=== PATIENT | female | born 1995 | race Caucasian/White ===

== ENCOUNTER → 2020-05-16 | Outpatient (CLI) | payer SELFPAY ==
--- NOTE | 2020-05-16 09:37 | REP ---
OBSTETRIC SONOGRAPHY: HISTORY: Supervision of for anatomy. FINDINGS: Scanning through the gravid uterus demonstrates a single living intrauterine gestation in a breech lie. motion is observed and heart rate is recorder 127 beats per minute. Amniotic fluid is subjectively normal. Closed cervical length is 3.5 cm, measured transabdominally . No extrauterine abnormality is observed. No anomaly is seen. The following anatomic structures are identified and felt to be sonographically unremarkable: cranium, choroid plexus, cavum, cerebellum and posterior fossa, nuchal fold, face and profile, four-chamber heart with left and right ventricular outflow tract views, diaphragm, left-sided stomach, abdominal wall cord insertion, three-vessel cord, kidneys and bladder, spine, upper and lower extremities. Biometry Chart: BPD 6.1 cm = 25 weeks 0 days HC 22.1 cm = 24 weeks 1 day AC 19.5 cm = 24 weeks 1 day FL 4.4 cm = 24 weeks 2 days HL 4.2 cm = 25 weeks 1 day HC/AC ratio normal 1.14 Cephalic index normal 0.78. Estimated weight 675 grams, 1 pound 7 ounces, 39th percentile for 24 weeks 3 days. IMPRESSION: Single living intrauterine gestation at 24 weeks 0 days by today's composite sonographic criteria. FUNMILAYO by today's criteria September 05, 2020. anatomic survey is felt to be complete.
== END ==
LOC: M WHC 07:50
PROVIDERS: ATTEND Advanced Practice Midwife
DX: Z34.02 Encounter for supervision of normal first pregnancy, second trimester (principal); Z3A.24 24 weeks gestation of pregnancy

== ENCOUNTER → 2020-06-21 | Outpatient (CLI) | payer SELFPAY ==
[2020-06-21 12:39] LABS: HEMATOCRIT 38.3 % (36.0-47.0); HEMOGLOBIN 12.7 g/dl (12.0-15.5); MEAN CORPUSCULAR HEMOGLOBIN 32.2 pg (27.0-33.0); MEAN CORPUSCULAR HGB CONC 33.2 g/dl (32.0-36.5); MEAN CORPUSCULAR VOLUME 97.2 fl (80.0-96.0); PLATELET COUNT, AUTOMATED 225 10^3/uL (150-450); RED BLOOD COUNT 3.94 10^6/uL (4.00-5.40); WHITE BLOOD COUNT 14.1 10^3/uL (4.0-10.0)
== END ==
LOC: M PLALAB 08:01
PROVIDERS: ATTEND Advanced Practice Midwife
DX: Z34.02 Encounter for supervision of normal first pregnancy, second trimester (principal); Z36.89 Encounter for other specified antenatal screening

== ENCOUNTER → 2020-07-28 | Outpatient (REF) | payer OTHER | LOC: M LAB REF 08:19 | PROVIDERS: ATTEND Nurse Practitioner Family | DX: R30.0 Dysuria (principal) ==

== ENCOUNTER → 2020-08-03 | Outpatient (REF) | payer OTHER ==
[~2020-08-03] MED LIST: ACET-683 PO; IBUP80TA PO; PRENTAB9 PO; TUMS500C PO
== END ==
LOC: M SFHCWAGY 16:56
PROVIDERS: ATTEND Advanced Practice Midwife
DX: Z34.03 Encounter for supervision of normal first pregnancy, third trimester (principal)
CPT/HCPCS: 87081; G0463

== ENCOUNTER 2020-09-09 11:58 | Outpatient (CLI) | payer OTHER ==
[~2020-09-09] VITALS: Ht 160 cm; Wt 89.9 kg
[2020-09-09 12:17] VITALS: BP 118/73
[2020-09-09] MEDS ORDERED: PRENTAB9 PO (12:26)
[2020-09-09] MEDS ORDERED: TUMS500C PO (12:26)
--- NOTE | 2020-09-09 14:09 | IPNPDOC ---
Text Note Date of Service The patient was seen on 09/09/20. NOTE 41wk APFT Leona is a 25yo with SIUP at 41w0d presenting for scheduled APFT since she is 41wk and declining IOL. Feels well, no complaints. Good FM. No VB/LOF/regular ctx. Swept membranes yesterday and she had some cramping after, but that stopped. Vitals wnl Gen: WDWN, resting comfortably in bed Abdomen: soft, gravid, NTTP Extremities: no edema of BLE Cat II FHRT initially for minimal variability, but after patient had juice and some lunch, there was mod gustavo and many large accels, NO decels No ctx pattern TAUS: SIUP with cephalic presentation, posterior placenta, MARIE 20cm, +FCA, +FM Assessment: Leona is a 25yo with SIUP at 41w0d with reassuring testing, Cat I FHRT and MARIE 20cm. No signs of labor yet. Still declines IOL. Plan: -Discharge to home -Patient scheduled for NST/MARIE on 09/11 -Offered another membrane sweep, pt declined -Discussed return precautions Franca Kessler MD VS,Neto, I+O VS, Neto I+O Vital Signs Date Time Temp Pulse Resp B/P (MAP) Pulse Ox O2 Delivery O2 Flow Rate FiO2 09/09/20 12:17 97.8 68 16 118/73 (88) Franca Kessler MD Sep 09, 2020 14:09
== END 2020-09-09 13:59 | disposition home or self-care (01) ==
LOC: M LDO 11:58
PROVIDERS: ATTEND Obstetrics & Gynecology
DX: O48.0 Post-term pregnancy (principal); Z3A.41 41 weeks gestation of pregnancy
CPT/HCPCS: 59025; 76815; G0378; G0463

== ENCOUNTER 2020-09-13 09:26 | Inpatient (IN) | payer OTHER ==
[2020-09-13] VITALS (26 sets, daily range): BP systolic 110–228; BP diastolic 64–112
[~2020-09-13] VITALS: Ht 160 cm; Wt 90.7 kg
[~2020-09-13 09:26] MED LIST changes: -ACET-683 PO; -IBUP80TA PO
[2020-09-13] MEDS ORDERED: miSOPROStol 50 MCG 1/2 TAB (S0191) PO ONE (10:00)
[2020-09-13 11:09] LABS: HEMATOCRIT 40.1 % (36.0-47.0); HEMOGLOBIN 13.1 g/dl (12.0-15.5); MEAN CORPUSCULAR HEMOGLOBIN 30.5 pg (27.0-33.0); MEAN CORPUSCULAR HGB CONC 32.7 g/dl (32.0-36.5); MEAN CORPUSCULAR VOLUME 93.3 fl (80.0-96.0); PLATELET COUNT, AUTOMATED 194 10^3/uL (150-450); WHITE BLOOD COUNT 11.2 10^3/uL (4.0-10.0)
[2020-09-13] MEDS ORDERED: OXYTOCIN DRIP 30 UNITS in IV 1 EA IV SCH (14:15)
[2020-09-13] MEDS: LR 1,000 ML IV SCH ×2 (15:31→20:52)
[2020-09-14] VITALS (41 sets, daily range): BP systolic 108–161; BP diastolic 63–99
[2020-09-14] MEDS ORDERED: PROMETHAZINE INJ 25 MG/ML VIAL (J2550) IV ONE (01:00)
[2020-09-14] MEDS ORDERED: BUTORPHANOL 2 MG/ML INJ (J0595) IV ONE (01:00)
[2020-09-14] MEDS ORDERED: FENTANYL 2MCG/ML ROPIVACAINE 0.2% IN 0.9% NACL 100ML IVBAG As Ordered ONE (04:43)
[2020-09-14] MEDS: LR 1,000 ML IV SCH ×2 (05:02→07:46)
[2020-09-14] MEDS ORDERED: EPIDURAL COMMENT XX SCH (06:00)
[2020-09-14] MEDS ORDERED: REFRIGERATOR IV KEYS XX PRN (06:00)
[2020-09-14] MEDS ORDERED: ONDANSETRON 4MG/2ML VIAL IV PRN (06:00)
[2020-09-14] MEDS ORDERED: LACTATED RINGER'S 1000 ML IV PRN (06:00)
[2020-09-14] MEDS ORDERED: FENTANYL/ROPIVACAINE/NACL BAG 100 ML EPIDURAL SCH (06:00)
[2020-09-14] MEDS ORDERED: ePHEDrine SULFATE 25 MG/5 ML(5MG/ML) SYRINGE IV PRN (06:00)
[2020-09-14] MEDS ORDERED: EPIDURAL/PCA KEYS XX PRN (06:00)
[2020-09-14] MEDS ORDERED: NALOXONE INJ 0.4MG/1ML VIAL (J2310 PER 1MG) IV PRN (06:00)
[2020-09-14] MEDS ORDERED: diphenhydrAMINE 50MG/ML VIAL (J1200) IV PRN (06:00)
--- NOTE | 2020-09-14 11:37 | DNPDOC ---
[facility] Delivery Note Delivery Note DATE OF DELIVERY: 09/14/2020 PREDELIVERY DIAGNOSIS: 41w5d IOL for LTG POST DELIVERY DIAGNOSIS: Delivered. PROCEDURE: Spontaneous vaginal delivery AUDIO VISUAL AIDS DIRECTOR: Dr. Franca Kessler MD ANESTHESIA: epidural ESTIMATED BLOOD LOSS: 300 mL. FINDINGS: 9 pound 0 oz (4090g) female infant, Score 7/9, one nuchal cord DELIVERY SUMMARY: Leona is a 25yo [id number] s/p uncomplicated after undergoing IOL at 41w5d, delivering at 1028 on 09/14/20. She received a dose of cytotec and then was started on IV pitocin. At 6cm, she had SROM, and she then received an epidural. She progressed to C/C/0 at which point she began pushing. With good maternal effort, head delivered OA, restituted LILIANA. Tight nuchal cord reduced. Right anterior shoulder delivered followed by posterior shoulder and corpus. was placed on maternal abdomen, apgars 7/9, spontaneous cry noted. After approximately 2 minutes, cord clamped x2 and cut by FOB. With uterine massage and traction on the cord, placenta delivered spontaneously and intact with 3 vessel centrally inserted cord. IV pitocin given per protocol. More uterine massage performed with cessation of bleeding, EBL 300ml. Inspection of perineum and vagina revealed a small superficial periclitoral darshan repaired using a figure of 8 with 4-0 vicryl suture as well as a left labial laceration repaired with 3-0 vicryl in routine fashion, both having excellent reapproximation and total hemostasis. All counts correct x2. Mom and were doing well when I left the room. MD Checo Morrow Katrina D MD Sep 14, 2020 11:36
[2020-09-14] MEDS ORDERED: OXYTOCIN DRIP 30 UNITS in IV 1 EA IV SCH (12:22)
[2020-09-14] MEDS ORDERED: ACETAMINOPHEN 500 MG TAB PO PRN (12:30)
[2020-09-14] MEDS ORDERED: MEASLES,MUMPS,RUBELLA VACCINE INJ (MMR-II) (90707) SC SCH (12:30)
[2020-09-14] MEDS ORDERED: RHOGAM 300 MCG (1500 IU) INJ (J2790) IM SCH (12:30)
[2020-09-14] MEDS ORDERED: ACETAMINOPHEN TAB 650MG DOSE (2X325MG) PO PRN (12:30)
[2020-09-14] MEDS ORDERED: DIBUCAINE 1% OINTMENT 30GM TOP PRN (12:30)
[2020-09-14] MEDS: IBUPROFEN 800 MG TAB PO PRN (17:43)
[2020-09-14] MEDS: DOCUSATE SODIUM 100 MG CAP PO SCH (20:15)
[2020-09-15 06:00] VITALS: BP 97/55
--- NOTE | 2020-09-15 06:59 | IPNPDOC ---
Progress Note Date of Service: Sep 15, 2020 Day#: 1 Progress Note PPD 1 SUBJECT: Leona is a 25yo [id number] s/p uncomplicated after undergoing IOL at 41w5d, delivering at 1028 on 09/14/20, doing well on PPD 1. She has been ambulating, voiding spontaneously without issue and tolerating regular diet. Breast feeding without issue. Reports lochia is like a normal period. No f/c/n/v/CP/SOB. OBJECTIVE: VITAL SIGNS: Within normal limits, afebrile. Alert and oriented times three. Abdomen: Fundus firm at U-2. Soft, NTTP. Extremities: no pain with palpation of calves ASSESSMENT: Leona is a 25yo [id number] s/p uncomplicated after undergoing IOL at 41w5d, delivering at 1028 on 09/14/20, doing well on PPD 1. Vitals within normal limits, afebrile, hemodynamically stable with no evidence of infection. PLAN: 1. Routine care 2. Tylenol and Motrin for pain. 3. Encourage breast feeding and ambulation. 4. undecided on PP contraception 5. Regular diet 6. Anticipate discharge home tomorrow if meeting all milestones Franca Kessler MD VS, I&O, 24H, Fishbone Vital Signs/I&O Vital Signs Date Time Temp Pulse Resp B/P (MAP) Pulse Ox O2 Delivery O2 Flow Rate FiO2 09/15/20 06:00 96.9 81 18 97/55 (69) 09/14/20 01:20 Room Air 09/13/20 12:11 99 I&O- Last 24 Hours up to 6 AM 09/15/20 06:00 Intake Total 2083.5 ml Output Total 2325 ml Balance -241.5 ml Franca Kessler MD Sep 15, 2020 06:59
[2020-09-15] MEDS: PRENATAL VITAMINS CHEWABLE TABLET PO SCH (08:18)
[2020-09-15] MEDS: DOCUSATE SODIUM 100 MG CAP PO SCH ×2 (08:18→20:56)
[2020-09-15] MEDS: IBUPROFEN 600MG TAB PO PRN (08:18)
[2020-09-15 18:00] VITALS: BP 110/63
[2020-09-15] MEDS: IBUPROFEN 800 MG TAB PO PRN (20:56)
[2020-09-16 06:00] VITALS: BP 95/51
[2020-09-16] MEDS: IBUPROFEN 600MG TAB PO PRN (08:08)
[2020-09-16] MEDS: DOCUSATE SODIUM 100 MG CAP PO SCH (08:08)
[2020-09-16] MEDS: PRENATAL VITAMINS CHEWABLE TABLET PO SCH (08:08)
[2020-09-16 11:21] VITALS: BP 125/80
[2020-09-16] MEDS ORDERED: IBUP80TA PO (11:44)
[2020-09-16] MEDS ORDERED: ACET-683 PO (11:44)
[2020-09-16 14:55] VITALS: BP 100/60
== END 2020-09-16 13:38 | disposition home or self-care (01) | DRG 807 ==
LOC: M LDI 09:26 → M OBS 09-14 12:54
PROVIDERS: ADMIT Advanced Practice Midwife; ATTEND Advanced Practice Midwife
PROC: 3E033VJ Introduction of Other Hormone into Peripheral Vein, Percutaneous Approach (ICD-10-PCS; 2020-09-13)
PROC: 3E0DXGC Introduction of Other Therapeutic Substance into Mouth and Pharynx, External Approach (ICD-10-PCS; 2020-09-13)
PROC: 10E0XZZ Delivery of Products of Conception, External Approach (ICD-10-PCS; principal; 2020-09-14)
PROC: 0HQ9XZZ Repair Perineum Skin, External Approach (ICD-10-PCS; 2020-09-14)
DX: O48.0 Post-term pregnancy (principal); Z37.0 Single live birth; Z3A.41 41 weeks gestation of pregnancy; O70.0 First degree perineal laceration during delivery; O69.1XX0 Labor and delivery complicated by cord around neck, with compression, not applicable or unspecified